=== PATIENT | male | born 1955 | race Caucasian/White ===

== ENCOUNTER 2020-01-23 13:14 | Outpatient (CLI) | payer BC ==
--- NOTE | 2020-01-23 13:42 | RAD ---
EXAM: 3 views of the left ankle HISTORY: Left ankle pain COMPARISON: None FINDINGS: 3 views of the left ankle shows no evidence of acute fracture or dislocation. Mild anterior soft tissue swelling is seen. There are mild degenerative changes in the midfoot. IMPRESSION: No evidence of acute osseous abnormality.
--- NOTE | 2020-01-23 15:45 | RAD ---
LEFT FOOT 3 VIEWS: INDICATION: History of left foot pain. COMPARISON: None. FINDINGS: There is scattered forefoot and mid foot osteoarthritic change. Lisfranc alignment is preserved. No acute fracture or subluxation is evident. Soft tissues appear within normal limits. IMPRESSION: No acute osseous abnormality. POS: BH
== END 2020-01-23 13:15 | disposition home or self-care (01) ==
LOC: SCSRAD 13:14
PROVIDERS: ATTEND Podiatrist
DX: M19.90 Unspecified osteoarthritis, unspecified site (principal)

== ENCOUNTER 2020-04-09 07:48 | Outpatient (CLI) | payer BC ==
[2020-04-09] MEDS ORDERED: Iopamidol-370 76% 500 ML 1 ML ONE (09:13)
--- NOTE | 2020-04-09 09:18 | CT ---
EXAM: CT Abdomen Pelvis W WO con PROVIDED CLINICAL HISTORY: Constipation, enterography. COMPARISON: 03/07/2020 FINDINGS: Vascular calcifications are seen in the coronary arteries as well as involving the abdominal aorta an d iliac arteries. There is linear scarring seen in the right middle lobe. An oval-shaped pulmonary nodule measuring 8 m m is seen at the right lung base (image 47, series 5). This was also present on prior study. Again noted is a large hypodense fluid attenuation cyst within the region of the dome of liver measur ing 5.3 cm. Closely adjacent subcentimeter hypodense lesion is also again seen which is too small to characterize. Nonobstructing superior pole left renal calculi are seen measuring 5 mm and 4 mm respectively. A punc peace calculus is seen at the left UPJ which does result in mild caliectasis. The right kidney demonstrates a normal CT appearance. The spleen, pancreas, and bilateral adrenal glands demonstrate a normal CT appearance. There is quest ion of eccentric area of wall thickening involving the gallbladder fundus. Further evaluation with ultrasound is recommended. Small duodenal diverticulum seen at the junction of the second/third portion of the duodenum. Loops o f small bowel are normal in caliber. Small amount retained fecal material seen throughout the colon. Urinary bladder has a normal CT appearance. No free fluid, fluid collection, or lymphadenopathy is seen in the abdomen or pelvis. Postoperative changes left hip again seen. There is midline scarring in the infraumbilical location anterior abdominal wall. Mild degenerative changes are seen in the spine. IMPRESSION: 1. Oval-shaped 8 millimeter pulmonary nodule right lung base. Follow-up evaluation in 4-6 months is r ecommended. 2. Suggestion of mild eccentric thickening involving the fundus of the gallbladder. Follow-up ultraso und right upper quadrant is recommended. 3. Punctate calculus left UPJ resulting in mild caliectasis. 4. Nonobstructing superior pole left renal calculi. 5. Mild constipation. 6. Hepatic cysts.
== END 2020-04-09 07:49 | disposition home or self-care (01) ==
LOC: BICCT 07:48
PROVIDERS: ATTEND Internal Medicine
DX: K59.00 Constipation, unspecified (principal); R10.84 Generalized abdominal pain; K66.0 Peritoneal adhesions (postprocedural) (postinfection); N20.1 Calculus of ureter; K82.8 Other specified diseases of gallbladder; K76.89 Other specified diseases of liver; N28.89 Other specified disorders of kidney and ureter; R91.1 Solitary pulmonary nodule
CPT/HCPCS: 74178; 82565; Q9967

== ENCOUNTER 2020-07-11 11:59 | Outpatient (CLI) | payer BC ==
[2020-07-11 13:29] LABS: PTT 28.8 sec (22.0-33.0); Prothrombin Time 10.9 sec (9.5-12.1)
[2020-07-11 13:52] LABS: Anion Gap 14 mmol/L (10-20); BUN (Urea Nitrogen) 16 mg/dL (8.4-25.7); Calc. Creatinine Clearance 0 mL/min (70-130); Calcium 9.7 mg/dL (7.8-10.44); Carbon Dioxide 25 mmol/L (23-31); Chloride 104 mmol/L (98-107); Glucose 90 mg/dL (80-115); Sodium 138 mmol/L (136-145)
[2020-07-11 14:04] LABS: Hemoglobin 14.8 g/dL (13.5-17.5); Mean Corpuscular HGB CONC 34.3 g/dL (32.0-36.0); Mean Corpuscular Hemoglobin 33.1 pg (27.0-33.0); Mean Corpuscular Volume 96.6 fl (81.2-95.1); Mean Platelet Volume 10.6 fl (7.4-10.4); Platelet Count 130 10x3/uL (150-450); RBC Distribution Width 12.3 % (11.5-14.5); Red Blood Cell (RBC) Count 4.47 10x6/uL (4.32-5.72); White Blood Cell (WBC) Count 3.7 10x3/uL (3.5-10.5)
[2020-07-11 14:13] LABS: Bilirubin Neg (Negative); Blood, Urine Negative (Negative); Clarity Clear (Clear); Glucose, Urine (Dipstick) Normal (Negative); Ketone, Urine Negative (Negative); Leukocyte Negative (Negative); Nitrite Negative (Negative); Protein, Urine (Dipstick) Negative (Neg-Trace); Specific Gravity, Urine 1.005 (1.002-1.036); Urobilinogen Normal mg/dL (Less than 2)
[2020-07-11 14:57] LABS: RBC/HPF None Seen HPF (0-3); Squamous Epithelial 0-3 HPF (0-3); WBC/HPF None Seen HPF (0-3)
[2020-07-11 14:59] LABS: Bacteria/HPF None Seen HPF (None Seen)
[2020-07-11 15:07] LABS: EPI 165 SEC (67-199); Platelet Count 136 thou/uL (130-400)
[2020-07-12 04:33] LABS: SARS-CoV-2 PCR by NAA Not Detected (NotDetected)
== END 2020-07-11 12:00 | disposition home or self-care (01) ==
LOC: LABBT 11:59
PROVIDERS: ATTEND Urology
DX: Z01.818 Encounter for other preprocedural examination (principal); N20.0 Calculus of kidney; Z20.822 Contact with and (suspected) exposure to COVID-19
CPT/HCPCS: 80048; 81001; 85027; 85576; 85610; 85730; 87086; 87635; U0003; U0005

== ENCOUNTER 2020-07-16 08:22 | Day surgery (SDC) | payer BC ==
[2020-07-12 15:38] VITALS: BMI 28.0
[2020-07-16] MEDS ORDERED: Scopolamine 1.5 mg/72 hour Patch ONE (10:00)
[2020-07-16] MEDS ORDERED: Famotidine/PF 20 mg/2ml Vial ONE (10:17)
[2020-07-16] MEDS ORDERED: Metoclopramide HCl 10 MG/2 ML VIAL ONE (10:18)
[2020-07-16] MEDS ORDERED: Ondansetron PF 4 MG/2 ML Vial ONE (10:18)
[2020-07-16] MEDS ORDERED: Iothalamate Meglumine 60% 50 ML VIAL FS ONE (10:43)
[2020-07-16] MEDS ORDERED: Propofol 1,000 MG/100 ML VIAL IV ONE (10:48)
[2020-07-16] MEDS ORDERED: Fentanyl 100 MCG/2 ML VIAL ONE (10:48)
[2020-07-16] MEDS ORDERED: Lidocaine 1% PF 5 ML VIAL ONE (11:11)
[2020-07-16] MEDS ORDERED: Glycopyrrolate 0.2 MG/ML 5 ML SYRINGE ONE (11:11)
[2020-07-16] MEDS ORDERED: PROPOFOL 200 MG/20 ML VIAL ONE (11:11)
[2020-07-16] MEDS ORDERED: Succinylcholine 200 MG/10 ml SYRINGE FS ONE (11:11)
== END 2020-07-16 15:10 | disposition home or self-care (01) ==
LOC: SDC 08:22
PROVIDERS: ATTEND Urology
PROC: 0TF7XZZ Fragmentation in Left Ureter, External Approach (ICD-10-PCS; principal; 2020-07-16)
DX: N20.1 Calculus of ureter (principal); I10 Essential (primary) hypertension; E78.5 Hyperlipidemia, unspecified; I25.10 Atherosclerotic heart disease of native coronary artery without angina pectoris; I25.2 Old myocardial infarction; G47.30 Sleep apnea, unspecified; E03.9 Hypothyroidism, unspecified; N40.1 Benign prostatic hyperplasia with lower urinary tract symptoms; G89.29 Other chronic pain; Z79.82 Long term (current) use of aspirin; Z79.899 Other long term (current) drug therapy; Z88.5 Allergy status to narcotic agent; Z95.1 Presence of aortocoronary bypass graft
CPT/HCPCS: 74018; 93005; 93010; J2405; J2704; J2765; J3010; Q9961; S0028

== ENCOUNTER 2021-09-28 00:35 | Inpatient (IN) | payer BC ==
[2021-09-28 01:24] LABS: #Eosinphils 0.1 thou/uL (0.0-0.7); #Lymphocytes 0.9 thou/uL (1.20-3.40); #Neutrophils 9.4 thou/uL (1.40-6.50); %Basophils 0.4 % (0.0-1.0); %Eosinophils 1.2 % (0.0-10.0); %Lymphocytes 7.8 % (21.0-51.0); %Monocytes 8.9 % (0.0-10.0); %Neutrophils 81.7 % (42.0-75.0); Hemoglobin 17.1 g/dL (14.0-18.0); Mean Corpuscular HGB CONC 33.4 g/dL (32.0-36.0); Mean Corpuscular Hemoglobin 33.7 pg (27.0-31.0); Mean Platelet Volume 7.3 fL (7.4-10.4); Platelet Count 168 thou/uL (130-400); RBC Distribution Width 11.5 % (11.5-14.5); Red Blood Cell (RBC) Count 5.08 mill/uL (4.70-6.10); White Blood Cell (WBC) Count 11.5 thou/uL (4.8-10.8)
[2021-09-28] MEDS ORDERED: Fentanyl 100 MCG/2 ML VIAL ONE (01:26)
[2021-09-28] MEDS ORDERED: Ondansetron PF 4 MG/2 ML Vial ONE (01:27)
[2021-09-28 01:45] LABS: ALT (SGPT) 23 U/L (8-55); AST (SGOT) 22 U/L (5-34); Albumin 4.8 g/dL (3.4-4.8); Alkaline Phosphatase 50 U/L (40-110); Anion Gap 17 mmol/L (10-20); BUN (Urea Nitrogen) 16 mg/dL (8.4-25.7); Bilirubin, Total 1.7 mg/dL (0.2-1.2); Calc. Creatinine Clearance 0 mL/min (70-130); Calcium 10.6 mg/dL (7.8-10.44); Carbon Dioxide 26 mmol/L (23-31); Chloride 99 mmol/L (98-107); Globulin 3.1 g/dL (2.4-3.5); Glucose 118 mg/dL (80-115); Lipase 17 U/L (8-78); Potassium 4.2 mmol/L (3.5-5.1); Protein, Total 7.9 g/dL (5.8-8.1); Sodium 138 mmol/L (136-145)
[2021-09-28] MEDS ORDERED: Ondansetron PF 4 MG/2 ML Vial IVP PRN (03:44)
[2021-09-28] MEDS ORDERED: Acetaminophen 325 MG TAB PO PRN (03:44)
[2021-09-28 04:03] LABS: Bilirubin Negative (Negative); Blood, Urine Negative (Negative); Clarity Clear (Clear); Glucose, Urine (Dipstick) Normal (Negative); Ketone, Urine 80 mg/dL (Negative); Leukocyte Negative Leu/uL (Negative); Nitrite Negative (Negative); Protein, Urine (Dipstick) 10 mg/dL (Neg-Trace); Urobilinogen Normal mg/dL (Less than 2)
[2021-09-28 04:16] LABS: Specific Gravity, Urine Greater than 1.060 (1.002-1.036)
[2021-09-28 04:54] VITALS: BMI 28.8
[2021-09-28] MEDS ORDERED: Morphine 2 MG/ML VIAL SLOW IVP SCH (05:00)
[2021-09-28] MEDS ORDERED: Fentanyl 100 MCG/2 ML VIAL SLOW IVP SCH (05:30)
[2021-09-28] MEDS: Sodium Chloride 0.9% 1,000 ML IV SCH ×3 (06:25→20:55)
[2021-09-28 07:50] LABS: SARS-CoV-2 NAA Rapid Test Not Detected (NotDetected)
[2021-09-28] MEDS ORDERED: Iopamidol-370 76% 500 ML 1 ML ONE (08:40)
[2021-09-28] MEDS ORDERED: Chloraseptic Spray 180 ml Bottle PO PRN (09:51)
[2021-09-28] MEDS: Cepastat Lozenges 1 LOZ PO PRN ×2 (12:41→16:37)
[2021-09-28] MEDS ORDERED: Acetaminophen 650 MG Suppository PR PRN (14:38)
[2021-09-28] MEDS: Famotidine 40 MG/4 ML VIAL SLOW IVP SCH (20:50)
[2021-09-28] MEDS ORDERED: Famotidine/PF 20 mg/2ml Vial SLOW IVP SCH (21:00)
[2021-09-29] MEDS: Cepastat Lozenges 1 LOZ PO PRN (02:45)
[2021-09-29] MEDS ORDERED: Fentanyl 100 MCG/2 ML VIAL SLOW IVP SCH (03:30)
[2021-09-29] MEDS: Sodium Chloride 0.9% 1,000 ML IV SCH ×3 (05:35→22:01)
[2021-09-29 06:04] LABS: #Eosinphils 0.2 thou/uL (0.0-0.7); #Lymphocytes 1.2 thou/uL (1.20-3.40); #Monocytes 0.6 thou/uL (0.11-0.59); %Basophils 0.1 % (0.0-1.0); %Eosinophils 3.2 % (0.0-10.0); %Lymphocytes 24.1 % (21.0-51.0); %Monocytes 12.9 % (0.0-10.0); %Neutrophils 59.7 % (42.0-75.0); Hemoglobin 14.7 g/dL (14.0-18.0); Mean Corpuscular HGB CONC 33.3 g/dL (32.0-36.0); Mean Corpuscular Hemoglobin 34.2 pg (27.0-31.0); Mean Platelet Volume 7.5 fL (7.4-10.4); Platelet Count 130 thou/uL (130-400); RBC Distribution Width 11.5 % (11.5-14.5); Red Blood Cell (RBC) Count 4.28 mill/uL (4.70-6.10); White Blood Cell (WBC) Count 4.9 thou/uL (4.8-10.8)
[2021-09-29 06:29] LABS: Anion Gap 11 mmol/L (10-20); BUN (Urea Nitrogen) 12 mg/dL (8.4-25.7); Calc. Creatinine Clearance 134 mL/min (70-130); Calcium 8.6 mg/dL (7.8-10.44); Carbon Dioxide 25 mmol/L (23-31); Chloride 108 mmol/L (98-107); Glucose 81 mg/dL (80-115); Potassium 3.9 mmol/L (3.5-5.1); Sodium 140 mmol/L (136-145)
[2021-09-29] MEDS ORDERED: MD-Gastroview 120 ML BOT ONE (09:03)
[2021-09-29] MEDS: Famotidine 40 MG/4 ML VIAL SLOW IVP SCH ×2 (13:37→20:38)
[2021-09-29] MEDS ORDERED: Melatonin 3 MG TAB PO PRN (17:55)
[2021-09-30] MEDS: Sodium Chloride 0.9% 1,000 ML IV SCH ×2 (05:01→16:50)
[2021-09-30 07:11] LABS: #Eosinphils 0.2 thou/uL (0.0-0.7); #Lymphocytes 1.2 thou/uL (1.20-3.40); #Monocytes 0.5 thou/uL (0.11-0.59); #Neutrophils 1.6 thou/uL (1.40-6.50); %Basophils 0.8 % (0.0-1.0); %Eosinophils 4.6 % (0.0-10.0); %Lymphocytes 33.7 % (21.0-51.0); %Monocytes 14.9 % (0.0-10.0); %Neutrophils 45.9 % (42.0-75.0); Hemoglobin 13.7 g/dL (14.0-18.0); Mean Corpuscular HGB CONC 32.5 g/dL (32.0-36.0); Mean Corpuscular Hemoglobin 33.6 pg (27.0-31.0); Mean Platelet Volume 7.5 fL (7.4-10.4); Platelet Count 131 thou/uL (130-400); RBC Distribution Width 11.5 % (11.5-14.5); Red Blood Cell (RBC) Count 4.08 mill/uL (4.70-6.10); White Blood Cell (WBC) Count 3.6 thou/uL (4.8-10.8)
[2021-09-30 07:43] LABS: Anion Gap 9 mmol/L (10-20); BUN (Urea Nitrogen) 10 mg/dL (8.4-25.7); Calc. Creatinine Clearance 138 mL/min (70-130); Calcium 8.8 mg/dL (7.8-10.44); Carbon Dioxide 26 mmol/L (23-31); Chloride 109 mmol/L (98-107); Glucose 100 mg/dL (80-115); Potassium 4.3 mmol/L (3.5-5.1); Sodium 140 mmol/L (136-145)
[2021-09-30] MEDS: Famotidine 40 MG/4 ML VIAL SLOW IVP SCH (09:23)
[2021-09-30 16:43] VITALS: BP 116/71; TEMP 97.6
== END 2021-09-30 17:38 | disposition home or self-care (01) | DRG 390 ==
LOC: ERS 00:35 → SURG B 03:03
PROVIDERS: ADMIT Internal Medicine; ATTEND Internal Medicine
PROC: 0D9670Z Drainage of Stomach with Drainage Device, Via Natural or Artificial Opening (ICD-10-PCS; principal; 2021-09-28)
DX: K56.609 Unspecified intestinal obstruction, unspecified as to partial versus complete obstruction (principal); Z20.822 Contact with and (suspected) exposure to COVID-19; I25.10 Atherosclerotic heart disease of native coronary artery without angina pectoris; E03.9 Hypothyroidism, unspecified; E78.5 Hyperlipidemia, unspecified; E83.52 Hypercalcemia; E86.0 Dehydration; N40.0 Benign prostatic hyperplasia without lower urinary tract symptoms; Z90.49 Acquired absence of other specified parts of digestive tract; Z98.890 Other specified postprocedural states; Z88.5 Allergy status to narcotic agent; Z79.899 Other long term (current) drug therapy; Z79.890 Hormone replacement therapy; Z79.82 Long term (current) use of aspirin; Z82.3 Family history of stroke; Z82.49 Family history of ischemic heart disease and other diseases of the circulatory system; Z95.1 Presence of aortocoronary bypass graft; Z90.89 Acquired absence of other organs; Z87.442 Personal history of urinary calculi
CPT/HCPCS: 36415; 74018; 74019; 74177; 74250; 80048; 80053; 81003; 83690; 85025; 93005; 96374; 96375; J2405; J3010; J7050; Q9963; Q9967; U0002

== ENCOUNTER 2021-12-25 11:36 | Outpatient (CLI) | payer BC | END 2021-12-25 11:37 | disposition home or self-care (01) | LOC: BICRAD 11:36 | PROVIDERS: ATTEND Podiatrist | DX: M72.2 Plantar fascial fibromatosis (principal); M77.31 Calcaneal spur, right foot ==

== ENCOUNTER 2023-05-25 08:46 | Outpatient (CLI) | payer BC | END 2023-05-25 08:47 | disposition home or self-care (01) | LOC: MRI 08:46 | PROVIDERS: ATTEND Physician Assistant | DX: M54.50 Low back pain, unspecified (principal); M47.816 Spondylosis without myelopathy or radiculopathy, lumbar region; M48.061 Spinal stenosis, lumbar region without neurogenic claudication; M48.07 Spinal stenosis, lumbosacral region | CPT/HCPCS: 72148 ==

== ENCOUNTER 2023-06-16 13:02 | Outpatient (CLI) | payer BC | END 2023-06-16 13:03 | disposition home or self-care (01) | LOC: BICCT 13:02 | PROVIDERS: ATTEND Neurological Surgery | DX: M47.26 Other spondylosis with radiculopathy, lumbar region (principal); M47.817 Spondylosis without myelopathy or radiculopathy, lumbosacral region; Z98.1 Arthrodesis status | CPT/HCPCS: 72131 ==

== ENCOUNTER 2024-03-29 13:43 | Outpatient (CLI) | payer BC | END 2024-03-29 13:44 | disposition home or self-care (01) | LOC: BICRAD 13:43 | PROVIDERS: ATTEND Podiatrist | DX: M21.42 Flat foot [pes planus] (acquired), left foot (principal); M19.072 Primary osteoarthritis, left ankle and foot; M24.872 Other specific joint derangements of left ankle, not elsewhere classified; M79.89 Other specified soft tissue disorders ==